=== PATIENT | female | born 1940 | race Two or more races ===

== ENCOUNTER 2021-01-11 06:15 | Day surgery (SDC) | payer OTHER ==
[~2021-01-11 06:15] MED LIST: ALLOPURINOL PO; ATACAND32 MG; CARDURA PO; CRESTOR10 MG PO; TOPROL XL100 M1 PO; TRILIPIX135 MG PO; VITAMIN B122500 MC1 PO; VITAMIN D310 MCG/1 M PO
[2021-01-11] MEDS ORDERED: NEURONTIN300 MG PO (10:43)
[2021-01-11] MEDS ORDERED: ULTRAM50 MG PO (10:43)
[2021-01-11] MEDS ORDERED: DERMOPLAST PAIN78 GM TOP (10:44)
== END 2021-01-11 15:00 | disposition home or self-care (01) ==
LOC: CIR.AMB 06:15 → CIR LITO 09:00 → CIR.AMB 15:00
PROVIDERS: ATTEND Surgery
DX: D01.3 Carcinoma in situ of anus and anal canal (principal); Z20.822 Contact with and (suspected) exposure to COVID-19

== ENCOUNTER 2023-09-25 05:20 | Day surgery (SDC) | payer OTHER ==
[2023-09-20 09:14] LABS: HEMATOCRIT 32.2 % (36.0-45.00); HEMOGLOBIN 10.8 g/dL (12.0-15.00); MEAN CELL VOLUME 86.3 fL (80.00-100.00); MEAN CORPUSCULAR HGB CONC 33.6 g/dl (32.0-36.0); PLATELET COUNT 204 K/uL (150-450); RED BLOOD COUNT 3.72 M/uL (4.00-6.00)
[2023-09-20 09:14] LABS: URINE APPEARANCE Clear; URINE BILIRRUBIN Negative (NEGATIVE); URINE BLOOD Negative; URINE COLOR Yellow; URINE GLUCOSE Negative (NEGATIVE); URINE KETONE Negative (NEGATIVE); URINE LEUKOCYTE Trace; URINE NITRATE Negative; URINE PROTEIN 30 (NEGATIVE); URINE UROBILINOGEN 0.2 E.U./dl
[2023-09-20 09:21] LABS: URINE BACTERIA 201.5 uL (0.0-1933); URINE EPITHELIAL CELLS 5.4 uL (0.0-38.8); URINE WBC 12.5 uL (0.0-23.2)
[2023-09-20 09:24] LABS: URINE CAST 0.61 uL (0.0-1.40); URINE RBC 1.8 uL (0.0-20.8)
[2023-09-20 09:47] LABS: INR 1.03; PARTIAL THROMBOPLASTIN TIME 27.6 SECONDS (22.0-34.0); PROTHROMBIN TIME 10.8 SECONDS (9.0-11.5)
[2023-09-20 09:52] LABS: ALBUMIN 4.6 gm/dL (3.4-5.0); BILIRUBIN TOTAL 0.47 mg/dL (0.3-1.2); CALCIUM 10.5 mg/dL (8.5-10.1); CREATININE SERUM 1.64 mg/dL (0.55-1.02); GFR 29.99; GLOBULINA 3.1 G/DL (2.4-3.5); POTASSIUM 5.49 mEq/L (3.5-5.1); TOTAL PROTEIN 7.7 gm/dL (6.4-8.2)
[~2023-09-25] VITALS: Ht 152.4 cm; Wt 60.3 kg
[~2023-09-25 05:20] MED LIST changes: +CRESTOR40 MG; +DERMOPLAST PAIN78 GM TOP; +NEURONTIN300 MG PO; +ULTRAM50 MG PO
[2023-09-25] MEDS ORDERED: DIBUCAINE 30 GM TUBE ONE (07:14)
[2023-09-25] MEDS ORDERED: HEMOSTATIC MATRIX 1 KIT KIT TOP ONE (07:14)
[2023-09-25] MEDS ORDERED: METRONIDAZOLE/SODIUM CHLORIDE 500 MG/100 ML PIGGYBACK IV ONE (07:15)
[2023-09-25] MEDS ORDERED: POVIDONE-IODINE 118 ML BOTT TOP ONE (07:15)
[2023-09-25] MEDS ORDERED: LIDOCAINE HCL 1%/EPINEPHRINE 20ML VIAL IJ ONE (07:15)
[2023-09-25] MEDS ORDERED: BUPIVACAINE HCL/MPF 0.5% 30ML VIAL ONE (07:15)
[2023-09-25] MEDS ORDERED: CEFTRIAXONE SODIUM 2,000 MG VIAL ONE (07:15)
[2023-09-25] MEDS ORDERED: TRAM1TAB98 PO (09:00)
[2023-09-25] MEDS ORDERED: NEURONTIN300 MG PO (09:00)
== END 2023-09-25 12:45 | disposition home or self-care (01) ==
LOC: CIR.AMB 05:20
PROVIDERS: ATTEND Surgery
DX: K62.82 Dysplasia of anus (principal); A63.0 Anogenital (venereal) warts; R85.612 Low grade squamous intraepithelial lesion on cytologic smear of anus (LGSIL); K57.30 Diverticulosis of large intestine without perforation or abscess without bleeding; Z86.010 Personal history of colon polyps; Z88.6 Allergy status to analgesic agent; Z88.2 Allergy status to sulfonamides; I10 Essential (primary) hypertension; M10.9 Gout, unspecified